=== PATIENT | female | born 1980 | race Caucasian/White ===

== ENCOUNTER → 2020-04-29 10:57 | Outpatient (CLI) | payer BC, SELFPAY ==
--- NOTE | 2020-04-29 11:03 | XR_ITS ---
PROCEDURE: XR ANKLE LT MIN 3V CLINICAL INDICATION: LT ANKLE PAIN-SWELLING BILATERAL COMPARISON: No exams were available for comparison FINDINGS: There is an avulsion fracture involving the tip the lateral malleolus with no significant displacement. Minimal hypertrophic changes are present at the tip of the medial malleolus. Calcaneal spur present. IMPRESSION: Nondisplaced avulsion fracture tip of lateral malleolus Dictated by: Lucian Sterling MD 04/29/2020 11:23 Lucian Sterling MD in [place] 04/29/2020 11:23
== END ==
PROVIDERS: PCP Internal Medicine; Visit Provider Internal Medicine
DX: M25.572 Pain in left ankle and joints of left foot (principal); M25.472 Effusion, left ankle
CPT/HCPCS: 73610

== ENCOUNTER 2020-04-29 13:46 | Outpatient (RCR) | payer BC, SELFPAY | END 2020-04-29 14:20 | disposition home or self-care (01) | LOC: PT 13:46 | PROVIDERS: Visit Provider Orthopaedic Surgery | DX: M25.572 Pain in left ankle and joints of left foot (principal); S93.402D Sprain of unspecified ligament of left ankle, subsequent encounter | CPT/HCPCS: 97760 ==

== ENCOUNTER → 2020-05-06 08:45 | Outpatient (CLI) | payer BC, SELFPAY ==
--- NOTE | 2020-05-06 08:48 | XR_ITS ---
PROCEDURE: XR ANKLE LT MIN 3V CLINICAL INDICATION: left ankle injury Lateral ankle pain COMPARISON: CR XR ANKLE LT MIN 3V from 04/29/2020 FINDINGS: There remains a thin calcific density at the tip of the lateral malleolus as previously described consistent with an avulsion fracture not significantly changed. This is age indeterminate. No overlying soft tissue swelling. IMPRESSION: No change nondisplaced avulsion fracture at the tip of the lateral malleolus Dictated by: Lucian Sterling MD 05/06/2020 09:10 Lucian Sterling MD in [place] 05/06/2020 09:10
== END ==
PROVIDERS: PCP Internal Medicine; Visit Provider Orthopaedic Surgery
DX: S82.892A Other fracture of left lower leg, initial encounter for closed fracture (principal)
CPT/HCPCS: 73610

== ENCOUNTER 2020-06-23 08:30 | Outpatient (RCR) | payer BC, SELFPAY ==
--- NOTE | 2020-05-10 08:57 | [facility].PTOPEV ---
PT Outpatient Evaluation Rehab PT Outpatient Evaluation Start: 05/10/20 08:42 Freq: Status: Active Protocol: Document 05/10/20 08:42 IGNACIO (Rec: 05/10/20 08:57 [email or web address] [id number]) Electronically Signed By Marco Antonio Gaines, PT 05/10/20 08:42 Outpatient Therapy Subjective History Subjective History Patient is a 39 year old female presenting to outpatient PT with reports of L foot/ankle pain of insidious onset. Pain is local to L lateral and medial malleolus. Symptom onset approx 6 weeks ago. Patient occupation involves prolonged standing and walking activities. Comorbiditie include hx of HTN and elevated BMI. Chief Complaint Pain,Stiff,Swelling Symptom Type Sharp Symptoms Aggravated By Standing,Physical Activity, Walking Prior Functional Limitations None Current Functional Limitations Housework,Standing,Recreation Activity,Walking,Stairs, Balance Symptom Description Intermittent Level of pain today (0-10) 4 Pain scale - at its best (0-10) 0 Pain scale - at its worst (0-10) 7 Ankle/Foot Eval Gait Observation General Gait Pattern Observation Antalgic Gait,Decrease Weight Bear (L) Palpation Tenderness left Ankle/Foot Palpation Findings Tenderness Ankle/Foot Palpation Overall Comment med/lat malleolus 3/4 ROM Ankle/Foot Dorsiflexion w/Knee Extended 0 Active Range Motion (degrees) Ankle/Foot Dorsiflexion w/Knee Extended 5 Passive Range (degrees) Ankle/Foot Plantar Flexion Active Range 50 of Motion (degrees) Ankle/Foot Plantar Flexion Passive Range 55 of Motion (degrees) Ankle/Foot Eversion Active Range of 12 Motion (degrees) Ankle/Foot Eversion Passive Range of 17 Motion (degrees) Ankle/Foot Inversion Active Range of 14 Motion (degrees) Ankle/Foot Inversion Passive Range of 17 Motion (degrees) Ankle/Foot ROM Limitations Soft Tissue Tightness Great Toe ROM Reason Not Measured Within Functional Limits Accessory Movements Ankle Accessory Movements that Elicit Fibular Dorsal [place],Fibular Symptoms Ventral [place],Talonavicular [place] MMT left Ankle Dorsiflexion Strength Grade 4- Good- Ankle Plantarflexion Strength Grade 4- Good- Foot Eversion Strength Grade 3+ Fair+ Foot Inversion Strength Grade 3+ Fair+ S
== END 2020-06-23 08:35 | disposition home or self-care (01) ==
LOC: PT 08:30
PROVIDERS: PCP Internal Medicine; Visit Provider Orthopaedic Surgery
DX: S93.402A Sprain of unspecified ligament of left ankle, initial encounter (principal)
CPT/HCPCS: 97010; 97014; 97035; 97110; 97112; 97140; 97163; 97164; 97760; G0283

== ENCOUNTER → 2021-04-21 13:10 | Outpatient (CLI) | payer BC, SELFPAY ==
[2021-04-21 15:19] LABS: Basophils % 0.3 % (0.1-2.0); Eosinophils # 0.2 K/mm3 (0.0-0.4); Eosinophils % 2.4 % (0.1-12.0); Hematocrit 37.3 % (37.0-47.0); Hemoglobin 12.8 g/dL (12.2-16.2); Lymphocytes # 1.9 K/mm3 (0.7-4.5); Lymphocytes % 25.9 % (10-50); Mean Corpuscular HGB Conc 34.4 g/dL (31.8-35.4); Mean Corpuscular Hemoglobin 30.3 pg (27.0-31.2); Mean Platelet Volume 8.2 fl (7.4-10.4); Monocytes # 0.4 K/mm3 (0.1-1.0); Monocytes % 6.1 % (1.7-9.3); Neutrophils # 4.7 K/mm3 (1.8-7.8); Neutrophils % 65.4 % (37.0-80.0); Platelet Count 242 K/mm3 (142-424); Red Blood Count 4.24 M/mm3 (4.20-5.40); Red Cell Distribution Width 13.6 % (11.5-17.5); White Blood Count 7.2 K/mm3 (4.8-10.8)
[2021-04-21 15:34] LABS: Chloride 101 mmol/L (98-107)
[2021-04-21 15:35] LABS: Sodium 138 mmol/L (136-145)
[2021-04-21 15:37] LABS: Albumin Level 4.3 g/dl (3.5-5.0); Albumin/Globulin Ratio 1.7 (1.1-1.8); Alkaline Phosphatase 54 U/L (38-126); Bilirubin,Total 0.6 mg/dl (0.2-1.3); Blood Urea Nitrogen 15 mg/dl (7-17); Carbon Dioxide 29 mmol/L (22.0-30.0); Estimated Glomerular Filt Rate 93 ml/min (>60); GFR (African American) 112 ML/MIN (>60); Globulin 2.5 g/dL (1.3-3.2); Total Protein,Serum 6.8 g/dl (6.3-8.2)
[2021-04-21 15:38] LABS: Calcium 8.4 mg/dl (8.4-10.2); Chol/HDL Ratio 3.9 (1-3.5); Cholesterol 188 mg/dl (140-200); Glucose 76 mg/dl (74-100); HDL Cholesterol 48 mg/dl (40-60); Triglycerides 93 mg/dl (30-150); VLDL Cholesterol 19 mg/dL (0-40)
[2021-04-21 15:39] LABS: Alanine Aminotransferase 29 U/L (12-78); Aspartate Amino Transferase 31 U/L (14-36)
[2021-04-21 15:49] LABS: Direct LDL Cholesterol 126.35 mg/dL (100-129)
[2021-04-21 16:06] LABS: Thyroid Stimulating Hormone 3.66 uIU/mL (0.465-4.68)
== END ==
PROVIDERS: PCP Internal Medicine; Visit Provider Internal Medicine
DX: I10 Essential (primary) hypertension (principal); E78.5 Hyperlipidemia, unspecified; E66.01 Morbid (severe) obesity due to excess calories; Z68.41 Body mass index [BMI] 40.0-44.9, adult
CPT/HCPCS: 80053; 80061; 84443; 85025